=== PATIENT | female | born 1930 | race Caucasian/White ===

== ENCOUNTER 2017-07-14 10:17 | Emergency (ER) | payer OTHER ==
[~2017-07-14] VITALS: Ht 170.2 cm; Wt 54.4 kg
[~2017-07-14 10:17] MED LIST: ACET325 PO; ALPR.25 PO; ASPI325EC; ASPI81CH PO; Augmentin 500-1 EACH PO; BISA5EC PO; CALCIUM + D3 E1 EACH PO; DOCU100 PO; ESCI10 PO; FISH OIL 1,0001 EAC1 PO; IBUP400 PO; LOPE2C PO; Multiple Vitam1 EAC1 PO; NIFE60ER; NIFE90ER PO; Norco 5-325 Ta1 EACH PO; OCUVITE EYE HE1 EACH PO; SIMV10 PO; TRAM50 PO; VALS80; ZESTORETIC 20-121 EA
[2017-07-14 10:45] LABS: BASOPHILS ABSOLUTE AUTO 0.04 K/mm3 (0.00-0.23); BASOPHILS PERCENT AUTO 0 % (0-2); EOSINOPHILS ABSOLUTE AUTO 0.06 K/mm3 (0.00-0.68); EOSINOPHILS PERCENT AUTO 1 % (0-6); Hemoglobin 13.9 g/dL (11.5-16.0); IMMATURE GRAN ABSOLUTE AUTO 0.03 K/mm3 (0.00-0.10); IMMATURE GRAN PERCENT AUTO 0 % (0-1); LYMPHOCYTES ABSOLUTE AUTO 1.37 K/mm3 (0.84-5.20); LYMPHOCYTES PERCENT AUTO 15 % (21-46); MONOCYTES ABSOLUTE AUTO 0.66 K/mm3 (0.16-1.47); MONOCYTES PERCENT AUTO 7 % (4-13); Mean Corpuscular HGB 32.4 pg (26.0-34.0); Mean Corpuscular HGB Conc 33.9 g/dL (31.5-36.5); Mean Corpuscular Volume 96 fL (80-100); NEUTROPHILS ABSOLUTE AUTO 7.11 K/mm3 (1.96-9.15); NEUTROPHILS PERCENT AUTO 77 % (41-73); Platelet Count 232 K/mm3 (150-400); RDW Coefficient Variation 14.1 % (11.7-14.2); RDW Standard Deviation 49.4 fL (35.1-46.3); Red Blood Cell Count 4.29 M/mm3 (3.80-5.20); White Blood Cell Count 9.27 K/mm3 (4.00-11.30)
[2017-07-14 11:09] LABS: Alanine Aminotransfer (ALT/SGP 22 U/L (12-78); Albumin, Blood 3.7 g/dL (3.4-5.0); Albumin/Globulin Ratio 0.8 (0.8-1.8); Alk Phos 102 U/L (50-136); Anion Gap 8 mmol/L (6-16); Aspartate Aminotrans (AST/SGOT 26 U/L (12-37); Bilirubin, Total 0.6 mg/dL (0.1-1.0); Blood Urea Nitrogen 13 mg/dL (8-24); Bun/Creatinine Ratio 19.1 (12.0-20.0); CO2, Blood 26 mmol/L (21-32); Calcium, Blood 9.5 mg/dL (8.5-10.1); Chloride, Blood 100 mmol/L (98-108); Creatinine, Blood 0.68 mg/dL (0.40-1.00); Globulin, Blood 4.4 g/dL (2.2-4.0); Glomerular Filtration Rate >60 (60-); Glucose, Blood 110 mg/dL (70-99); Potassium, Blood 3.5 mmol/L (3.5-5.5); Sodium, Blood 134 mmol/L (136-145); Total Protein, Blood 8.1 g/dL (6.4-8.2); Troponin I <0.015 ng/mL (0.000-0.040)
[2017-07-14 11:40] LABS: Source, Urine Clean Catch
[2017-07-14 11:48] LABS: Bilirubin, Urine Neg (Neg); Blood, Urine Neg (Neg); Glucose Qualitative, Urine Neg (Neg); Ketones, Urine Neg (Neg); Leukocyte Esterase, Urine Neg (Neg); Nitrite, Urine Neg (Neg); Protein, Urine 1+ (Neg); Urobilinogen, Urine NORM (Normal)
[2017-07-14 11:58] LABS: Appearance, Urine Clear (Clear); Color, Urine Yellow (P-Yellow)
[2017-07-14] MEDS ORDERED: ULTRA-LIGHT RO1 EACH XX (14:12)
== END 2017-07-14 14:42 | disposition home or self-care (01) ==
LOC: ER 10:17
PROVIDERS: Emergency Medicine
DX: F03.90 Unspecified dementia, unspecified severity, without behavioral disturbance, psychotic disturbance, mood disturbance, and anxiety (principal); R53.1 Weakness; W19.XXXA Unspecified fall, initial encounter; Z88.5 Allergy status to narcotic agent; Z88.8 Allergy status to other drugs, medicaments and biological substances; Z79.899 Other long term (current) drug therapy; Z79.82 Long term (current) use of aspirin; I10 Essential (primary) hypertension; E78.5 Hyperlipidemia, unspecified; J44.9 Chronic obstructive pulmonary disease, unspecified; F17.210 Nicotine dependence, cigarettes, uncomplicated
CPT/HCPCS: 36415; 70450; 71045; 80053; 84484; 85025; 93005; 93010; 99284

== ENCOUNTER 2018-02-10 09:38 | Emergency (ER) | payer OTHER ==
[~2018-02-10] VITALS: Ht 165.1 cm; Wt 59.0 kg
[~2018-02-10 09:38] MED LIST changes: +ULTRA-LIGHT RO1 EACH XX
[2018-02-10 11:00] LABS: BASOPHILS ABSOLUTE AUTO 0.03 K/mm3 (0.00-0.23); BASOPHILS PERCENT AUTO 0 % (0-2); EOSINOPHILS ABSOLUTE AUTO 0.06 K/mm3 (0.00-0.68); EOSINOPHILS PERCENT AUTO 1 % (0-6); Hematocrit 39.6 % (33.0-51.0); Hemoglobin 13.5 g/dL (11.5-16.0); IMMATURE GRAN ABSOLUTE AUTO 0.03 K/mm3 (0.00-0.10); IMMATURE GRAN PERCENT AUTO 0 % (0-1); LYMPHOCYTES ABSOLUTE AUTO 1.19 K/mm3 (0.84-5.20); LYMPHOCYTES PERCENT AUTO 12 % (21-46); MONOCYTES PERCENT AUTO 8 % (4-13); Mean Corpuscular HGB 33.9 pg (26.0-34.0); Mean Corpuscular HGB Conc 34.1 g/dL (31.5-36.5); Mean Corpuscular Volume 100 fL (80-100); Mean Platelet Volume 11.1 fL (9.1-12.4); NEUTROPHILS ABSOLUTE AUTO 8.18 K/mm3 (1.96-9.15); NEUTROPHILS PERCENT AUTO 79 % (41-73); Platelet Count 241 K/mm3 (150-400); RDW Coefficient Variation 13.2 % (11.7-14.2); RDW Standard Deviation 48.4 fL (35.1-46.3); Red Blood Cell Count 3.98 M/mm3 (3.80-5.20); White Blood Cell Count 10.29 K/mm3 (4.00-11.30)
[2018-02-10 11:13] LABS: Alanine Aminotransfer (ALT/SGP 27 U/L (12-78); Albumin, Blood 3.1 g/dL (3.4-5.0); Albumin/Globulin Ratio 0.8 (0.8-1.8); Alk Phos 116 U/L (50-136); Anion Gap 7 mmol/L (6-16); Aspartate Aminotrans (AST/SGOT 34 U/L (12-37); Bilirubin, Total 0.5 mg/dL (0.1-1.0); Blood Urea Nitrogen 6 mg/dL (8-24); Bun/Creatinine Ratio 7.7 (12.0-20.0); CO2, Blood 28 mmol/L (21-32); Calcium, Blood 8.7 mg/dL (8.5-10.1); Chloride, Blood 103 mmol/L (98-108); Creatinine, Blood 0.78 mg/dL (0.40-1.00); Globulin, Blood 3.7 g/dL (2.2-4.0); Glomerular Filtration Rate >60 (60-); Glucose, Blood 100 mg/dL (70-99); Potassium, Blood 3.3 mmol/L (3.5-5.5); Sodium, Blood 138 mmol/L (136-145); Total Protein, Blood 6.8 g/dL (6.4-8.2)
[2018-02-10 11:37] LABS: Source, Urine Clean Catch
[2018-02-10 11:54] LABS: Appearance, Urine Clear (Clear); Bilirubin, Urine Neg (Neg); Blood, Urine Neg (Neg); Color, Urine Yellow (P-Yellow); Glucose Qualitative, Urine Neg (Neg); Ketones, Urine Neg (Neg); Leukocyte Esterase, Urine Neg (Neg); Nitrite, Urine Neg (Neg); Protein, Urine Neg (Neg); Urobilinogen, Urine NORM (Normal)
== END 2018-02-10 12:52 | disposition home or self-care (01) ==
LOC: ER 09:38
PROVIDERS: Emergency Medicine
DX: E86.0 Dehydration (principal); R53.83 Other fatigue; S42.002D Fracture of unspecified part of left clavicle, subsequent encounter for fracture with routine healing; I10 Essential (primary) hypertension; F03.90 Unspecified dementia, unspecified severity, without behavioral disturbance, psychotic disturbance, mood disturbance, and anxiety; E78.5 Hyperlipidemia, unspecified; J44.9 Chronic obstructive pulmonary disease, unspecified; F17.210 Nicotine dependence, cigarettes, uncomplicated; Z88.5 Allergy status to narcotic agent; Z88.8 Allergy status to other drugs, medicaments and biological substances; Z79.899 Other long term (current) drug therapy; Z79.82 Long term (current) use of aspirin
CPT/HCPCS: 36415; 71046; 80053; 81003; 83690; 85025; 96360; 99283-25; J7030

== ENCOUNTER 2018-11-16 11:06 | Emergency (ER) | payer OTHER ==
[~2018-11-16] VITALS: Ht 170.2 cm; Wt 56.7 kg
[2018-11-16 12:01] LABS: BASOPHILS ABSOLUTE AUTO 0.03 K/mm3 (0.00-0.23); BASOPHILS PERCENT AUTO 0 % (0-2); EOSINOPHILS ABSOLUTE AUTO 0.06 K/mm3 (0.00-0.68); EOSINOPHILS PERCENT AUTO 1 % (0-6); Hematocrit 40.3 % (33.0-51.0); Hemoglobin 13.7 g/dL (11.5-16.0); IMMATURE GRAN ABSOLUTE AUTO 0.03 K/mm3 (0.00-0.10); IMMATURE GRAN PERCENT AUTO 0 % (0-1); LYMPHOCYTES ABSOLUTE AUTO 1.73 K/mm3 (0.84-5.20); LYMPHOCYTES PERCENT AUTO 23 % (21-46); MONOCYTES ABSOLUTE AUTO 0.66 K/mm3 (0.16-1.47); MONOCYTES PERCENT AUTO 9 % (4-13); Mean Corpuscular HGB 31.2 pg (26.0-34.0); Mean Corpuscular Volume 92 fL (80-100); Mean Platelet Volume 11.1 fL (9.1-12.4); NEUTROPHILS ABSOLUTE AUTO 5.15 K/mm3 (1.96-9.15); NEUTROPHILS PERCENT AUTO 67 % (41-73); Platelet Count 260 K/mm3 (150-400); RDW Standard Deviation 47.5 fL (35.1-46.3); Red Blood Cell Count 4.39 M/mm3 (3.80-5.20); White Blood Cell Count 7.66 K/mm3 (4.00-11.30)
[2018-11-16 12:12] LABS: Alanine Aminotransfer (ALT/SGP 21 U/L (12-78); Albumin, Blood 3.5 g/dL (3.4-5.0); Albumin/Globulin Ratio 0.9 (0.8-1.8); Alk Phos 79 U/L (50-136); Anion Gap 9 mmol/L (6-16); Aspartate Aminotrans (AST/SGOT 22 U/L (12-37); Bilirubin, Total 0.3 mg/dL (0.1-1.0); Blood Urea Nitrogen 14 mg/dL (8-24); Bun/Creatinine Ratio 15.9 (12.0-20.0); CO2, Blood 25 mmol/L (21-32); Calcium, Blood 9.5 mg/dL (8.5-10.1); Chloride, Blood 101 mmol/L (98-108); Creatinine, Blood 0.88 mg/dL (0.40-1.00); Globulin, Blood 3.7 g/dL (2.2-4.0); Glomerular Filtration Rate >60 (60-); Glucose, Blood 91 mg/dL (70-99); Potassium, Blood 3.7 mmol/L (3.5-5.5); Sodium, Blood 135 mmol/L (136-145); Total Protein, Blood 7.2 g/dL (6.4-8.2); Troponin I <0.015 ng/mL (0.000-0.040)
== END 2018-11-16 15:50 | disposition home or self-care (01) ==
LOC: ER 11:06
PROVIDERS: Emergency Medicine
DX: J44.1 Chronic obstructive pulmonary disease with (acute) exacerbation (principal); R09.02 Hypoxemia; Z88.5 Allergy status to narcotic agent; Z88.8 Allergy status to other drugs, medicaments and biological substances; Z79.899 Other long term (current) drug therapy; Z79.82 Long term (current) use of aspirin; I10 Essential (primary) hypertension; Z85.3 Personal history of malignant neoplasm of breast; F03.90 Unspecified dementia, unspecified severity, without behavioral disturbance, psychotic disturbance, mood disturbance, and anxiety; E78.5 Hyperlipidemia, unspecified; J44.9 Chronic obstructive pulmonary disease, unspecified; F17.210 Nicotine dependence, cigarettes, uncomplicated
CPT/HCPCS: 71046; 80053; 84484; 85025; 93005; 93010; 94640; 94664; 94760; 96374; 98960; 99285-25; J2930

== ENCOUNTER 2019-04-10 18:46 | Emergency (ER) | payer OTHER ==
[~2019-04-10] VITALS: Ht 157.5 cm; Wt 45.4 kg
[2019-04-10 20:41] LABS: Source, Urine Clean Catch
[2019-04-10 20:44] LABS: BASOPHILS ABSOLUTE AUTO 0.07 K/mm3 (0.00-0.23); BASOPHILS PERCENT AUTO 1 % (0-2); EOSINOPHILS ABSOLUTE AUTO 0.06 K/mm3 (0.00-0.68); EOSINOPHILS PERCENT AUTO 0 % (0-6); Hematocrit 37.6 % (33.0-51.0); Hemoglobin 12.4 g/dL (11.5-16.0); IMMATURE GRAN ABSOLUTE AUTO 0.06 K/mm3 (0.00-0.10); IMMATURE GRAN PERCENT AUTO 0 % (0-1); LYMPHOCYTES ABSOLUTE AUTO 1.13 K/mm3 (0.84-5.20); LYMPHOCYTES PERCENT AUTO 7 % (21-46); MONOCYTES PERCENT AUTO 8 % (4-13); Mean Corpuscular HGB 31.5 pg (26.0-34.0); Mean Corpuscular Volume 95 fL (80-100); NEUTROPHILS ABSOLUTE AUTO 12.99 K/mm3 (1.96-9.15); NEUTROPHILS PERCENT AUTO 84 % (41-73); Platelet Count 223 K/mm3 (150-400); RDW Coefficient Variation 13.4 % (11.7-14.2); RDW Standard Deviation 47.8 fL (35.1-46.3); Red Blood Cell Count 3.94 M/mm3 (3.80-5.20); White Blood Cell Count 15.51 K/mm3 (4.00-11.30)
[2019-04-10 20:44] LABS: Bilirubin, Urine Neg (Neg); Blood, Urine 1+ (Neg); Glucose Qualitative, Urine Neg (Neg); Ketones, Urine Neg (Neg); Leukocyte Esterase, Urine Neg (Neg); Nitrite, Urine Neg (Neg); Protein, Urine 3+ (Neg); Urobilinogen, Urine NORM (Normal)
[2019-04-10 20:46] LABS: Appearance, Urine Clear (Clear); Color, Urine Yellow (P-Yellow)
[2019-04-10 20:51] LABS: Amorphous Light (0-Heavy); Bacteria Mod /hpf; Hyaline Casts 0-2 /lpf (0-2); Red Blood Cells, Urine 0-2 /hpf (0-2); Squamous Epithelial Cells Not Seen /hpf (Few)
[2019-04-10 21:07] LABS: Alanine Aminotransfer (ALT/SGP 16 U/L (12-78); Albumin, Blood 3.3 g/dL (3.4-5.0); Albumin/Globulin Ratio 0.9 (0.8-1.8); Alk Phos 85 U/L (50-136); Anion Gap 9 mmol/L (6-16); Aspartate Aminotrans (AST/SGOT 22 U/L (12-37); Bilirubin, Total 0.2 mg/dL (0.1-1.0); Blood Urea Nitrogen 22 mg/dL (8-24); CO2, Blood 25 mmol/L (21-32); Calcium, Blood 9.2 mg/dL (8.5-10.1); Chloride, Blood 106 mmol/L (98-108); Creatinine, Blood 0.92 mg/dL (0.40-1.00); Globulin, Blood 3.5 g/dL (2.2-4.0); Glomerular Filtration Rate >60 (60-); Glucose, Blood 102 mg/dL (70-99); Potassium, Blood 3.7 mmol/L (3.5-5.5); Sodium, Blood 140 mmol/L (136-145); Total Protein, Blood 6.8 g/dL (6.4-8.2); Troponin I <0.015 ng/mL (0.000-0.040)
== END 2019-04-10 21:52 | disposition home or self-care (01) ==
LOC: ER 18:46
PROVIDERS: Emergency Medicine
DX: F03.90 Unspecified dementia, unspecified severity, without behavioral disturbance, psychotic disturbance, mood disturbance, and anxiety (principal); R11.2 Nausea with vomiting, unspecified; I10 Essential (primary) hypertension; E78.5 Hyperlipidemia, unspecified; J44.9 Chronic obstructive pulmonary disease, unspecified; Z79.899 Other long term (current) drug therapy; Z79.82 Long term (current) use of aspirin
CPT/HCPCS: 36415; 70450; 71045; 80053; 81001; 84484; 85025; 87086; 93005; 93010; 96374; 99285-25; J2405; P9612

== ENCOUNTER 2020-03-15 11:00 | Observation (INO) | payer OTHER ==
[~2020-03-15] VITALS: Ht 170.2 cm; Wt 46.7 kg
[~2020-03-15 11:00] MED LIST changes: -ASPI81CH PO; +Aspirin EC81 MG PO; +NIFE30ER PO; -NIFE90ER PO
[2020-03-15] MEDS ORDERED: BISA10S PR ×2 (11:29→15:10)
[2020-03-15] MEDS ORDERED: DOCU100 PO (11:29)
[2020-03-15] MEDS ORDERED: Ativan1 MG PO (11:30)
[2020-03-15 13:54] LABS: Alanine Aminotransfer (ALT/SGP 22 U/L (12-78); Albumin, Blood 3.8 g/dL (3.4-5.0); Albumin/Globulin Ratio 1.1 (0.8-1.8); Alk Phos 84 U/L (50-136); Anion Gap 7 mmol/L (6-16); Aspartate Aminotrans (AST/SGOT 32 U/L (12-37); Bilirubin, Total 0.7 mg/dL (0.1-1.0); Blood Urea Nitrogen 17 mg/dL (8-24); Bun/Creatinine Ratio 19.5 (12.0-20.0); CO2, Blood 30 mmol/L (21-32); Calcium, Blood 9.7 mg/dL (8.5-10.1); Chloride, Blood 99 mmol/L (98-108); Creatinine, Blood 0.87 mg/dL (0.40-1.00); Globulin, Blood 3.6 g/dL (2.2-4.0); Glomerular Filtration Rate >60 (60-); Glucose, Blood 99 mg/dL (70-99); Sodium, Blood 136 mmol/L (136-145); Total Protein, Blood 7.4 g/dL (6.4-8.2)
[2020-03-15 14:12] LABS: BASOPHILS ABSOLUTE AUTO 0.05 K/mm3 (0.00-0.23); BASOPHILS PERCENT AUTO 0 % (0-2); EOSINOPHILS ABSOLUTE AUTO 0.06 K/mm3 (0.00-0.68); EOSINOPHILS PERCENT AUTO 0 % (0-6); Hemoglobin 12.5 g/dL (11.5-16.0); IMMATURE GRAN ABSOLUTE AUTO 0.07 K/mm3 (0.00-0.10); IMMATURE GRAN PERCENT AUTO 1 % (0-1); LYMPHOCYTES ABSOLUTE AUTO 1.04 K/mm3 (0.84-5.20); LYMPHOCYTES PERCENT AUTO 8 % (21-46); MONOCYTES ABSOLUTE AUTO 0.72 K/mm3 (0.16-1.47); MONOCYTES PERCENT AUTO 5 % (4-13); Mean Corpuscular HGB 30.3 pg (26.0-34.0); Mean Corpuscular HGB Conc 33.8 g/dL (31.5-36.5); Mean Corpuscular Volume 90 fL (80-100); NEUTROPHILS ABSOLUTE AUTO 11.74 K/mm3 (1.96-9.15); NEUTROPHILS PERCENT AUTO 86 % (41-73); NRBC ABSOLUTE 0.02 K/mm3 (0.00-0.02); NRBC Auto 0.1 /100 WBC (0.0-0.2); RDW Coefficient Variation 13.5 % (11.7-14.2); RDW Standard Deviation 44.6 fL (35.1-46.3); Red Blood Cell Count 4.13 M/mm3 (3.80-5.20); White Blood Cell Count 13.68 K/mm3 (4.00-11.30)
[2020-03-15 14:42] LABS: Mean Platelet Volume 11.9 fL (9.1-12.4); Platelet Count 124 K/mm3 (150-400)
[2020-03-15] MEDS ORDERED: DOCUZEN 8.6-501 EACH PO (15:09)
[2020-03-15] MEDS ORDERED: MELA3 PO (15:11)
--- NOTE | 2020-03-15 16:50 | NUR ---
1515 TO ROOM FROM ER PT RESTLESS, CONFUSED, CONTINUOUS ATTEMPTS TO CLIMB OUT OF BED. PT NOT ORIENTED TO PERSON, PLACE TIME OR SURROUNDINGS. PT IS NOT GRIMACING OR LIMITING MOVEMENT OF LIMBS.
--- NOTE | 2020-03-15 16:52 | NUR ---
1610 PT CONTINUES ATTEMPTS TO CLIMB OUT OF BED, UNABLE TO REDIRECT. PLAN TO TRANSFER PT TO SCU WHEN ROOM CLEANED TO ALLOW CLOSER OBSERVATION. RN SITTING AT BEDSIDE WITH PATIENT
--- NOTE | 2020-03-15 17:44 | NUR ---
SHIFT SUMMARY PT TRANSFERRED FROM SURGICAL TO [place] [id number]. RECEIVED REPORT FROM GASPER PATINO. PT IS BEDREST AT THE MOMENT; USES BEDPAN; ON REGULAR DIET. PT ON COMFORT CARE- HOSPICE AT HOME AND CAME HERE FOR R HIP FX. PT HAS DEMENTIA AND NOT ALERT AND ORIENTED AT BASELINE. PT SON IS THE POA. BED ALARM IS ON; BED IS IN THE LOWEST POSITION AND CALL LIGHTS WITHIN REACH
--- NOTE | 2020-03-15 18:08 | NUR ---
1748 transfer to room 349 via bed
--- NOTE | 2020-03-16 05:50 | NUR ---
SHIFT SUMMARY PT IS AN 89 Y/O FEMALE, ADMITTED FOR R HIP FX. SHE IS A&O X SELF, ON BEDREST. PT WAS VERY AGITATED AT THE START OF SHIFT, AND WAS MEDICATED WITH PRN IV DILAUDID. PT SLEPT WELL AFTER SHE WAS MEDICATED. NO C/O NAUSEA OR SOB, NO S/S OF DISTRESS. VITAL SIGNS STABLE. NO ACUTE CHANGES IN PT CONDITION NOTED. WILL CONTINUE TO MONITOR AND TREAT PER EMAR UNTIL HAND OFF TO DAY SHIFT RN.
[2020-03-16 10:09] LABS: Source, Urine Catheter
[2020-03-16 10:12] LABS: Appearance, Urine Turbid (Clear); Bilirubin, Urine Neg (Neg); Blood, Urine 2+ (Neg); Color, Urine Yellow (P-Yellow); Glucose Qualitative, Urine Neg (Neg); Ketones, Urine 2+ (Neg); Leukocyte Esterase, Urine Neg (Neg); Nitrite, Urine Neg (Neg); Protein, Urine 3+ (Neg); Urobilinogen, Urine NORM (Normal)
[2020-03-16] MEDS ORDERED: DOCU100 PO (10:12)
[2020-03-16] MEDS ORDERED: Ativan1 MG SL (10:16)
[2020-03-16] MEDS ORDERED: Milk Of Ma400 MG/5 M PO (10:19)
[2020-03-16 10:21] LABS: Bacteria Many /hpf; Squamous Epithelial Cells Many /hpf (Few)
[2020-03-16] MEDS ORDERED: Oxycodone HCl20 M1 SL (10:21)
[2020-03-16] MEDS ORDERED: MINERAL OIL135 ML PR (10:22)
[2020-03-16] MEDS ORDERED: HYOS.125 PO (10:23)
--- NOTE | 2020-03-16 10:35 | NUR ---
TRYING TO REDIRECT PT TO STAY IN BED, CALL LIGHT IN REACH.
--- NOTE | 2020-03-16 17:29 | NUR ---
SHIFT SUMMARY PT AOX1. PT VERY PAINFUL WHEN REPOSITION. PT MEDICATER PER EMAR; PT IS MORE AWAKE TODAY THAN YESTERDAY. PT HAS FENTANYL PATCH ON RIGHT UPPER ARM FOR PAIN. DUPONT INSERTED TODAY 03/16; AND SENT THE [facility]. PT PRESCRIBED ROCEPHIN. NO OTHER ACUTE CHANGES AT THIS SHIFT. BED IS IN THE LOWEST POSITION AND CALL LIGHTS WITHIN REACH.
--- NOTE | 2020-03-17 06:15 | NUR ---
SHIFT SUMMARY PT IS AN 89 Y/O FEMALE, ADMITTED WITH A R HIP FX. SHE IS A&O X SELF ONLY, ON BEDREST, THOUGH SHE MOVES ALL FOUR EXTREMITIES. DUPONT IN PLACE, PATENT AND DRAINING. PT SLEPT WELL THROUGH THE NIGHT, WITH NO S/S OF PAIN (EXCEPT WITH TURNING), NAUSEA OR SOB. VITAL SIGNS STABLE. NO OTHER ACUTE CHANGES IN PT CONDITION NOTED DURING THE NIGHT. WILL CONTINUE TO MONITOR AND TREAT PER EMAR UNTIL HAND OFF TO DAY SHIFT RN.
--- NOTE | 2020-03-17 17:28 | NUR ---
SHIFT SUMMARY PT ALERT TO SELF ONLY; PLEASANTLY CONFUSED. PT CALM AND COOPERATIVE. PT ABLE TO TAKE MEDICATIONS CRUSHED WITH PUDDING. PT VERY PAINFUL WITH POSITION CHANGING; MEDICATED PER EMAR USING FACE SCALE. PT HAS DUPONT IN DRAINING AND PATENT. PT SON CAME BY AND VISITED THE PT. BED ALARM IS ON; CALL LIGHTS WITHIN REACH AND BED IS IN THE LOWEST POSITION.
--- NOTE | 2020-03-18 06:00 | NUR ---
SHIFT SUMMARY PT IS A 89 Y/O FEMALE, ADMITTED FOR R HIP FX AND IMPAIRED MOBILITY. PT IS A&O X SELF ONLY, MOVES ALL FOUR EXTREMITIES IN BED. PT SLEPT OFF AND ON DURING THE NIGHT, NO S/S OF ACUTE PAIN AT REST, SOB OR NAUSEA. AM BP WAS ELEVATED AT 169/79. ALL OTHER VITALS STABLE. NO OTHER ACUTE CHANGES IN PT CONDITION NOTED. WILL CONTINUE TO MONITOR AND TREAT PER EMAR UNTIL HAND OFF TO DAY SHIFT RN.
--- NOTE | 2020-03-18 18:18 | NUR ---
PATIENT IS ALERT TO SELF, FAMILY AND FOLLOWING DIRECTIONS. SHE HAS A POOR APPETITE. DUPONT IS IN PLACE. MEDICATED FOR PAIN ONCE TODAY. PATIENT PULLED IV THIS AFTERNOON. NON-WEIGHT BEARING, BEDREST. THE PATIENT'S SON WAS AT THE BEDSIDE FOR A COUPLE HOURS TODAY. WILL CONTINUE TO MONITOR.
--- NOTE | 2020-03-19 04:40 | NUR ---
NURSE EXAMINER SUMMARY PT A&O SELF, ABLE TO MAKE NEEDS KNOWN. PLEASANT AND COOPERATIVE TO CARE. MEDICATED FOR PAIN PER EMAR. PT ON RA, DENIES SOB, CP, N&V. CALM AND RESTED IN BED T/O SHIFT. BED AT LOWEST POSITION. CALL LIGHT WITHIN REACH.
--- NOTE | 2020-03-19 17:43 | NUR ---
PATIENT IS ALERT AND ORIENTED TO SELF AND FAMILY. DUPONT IS IN PLACE AND PATENT. THE PLAN IS TO DISCHARGE TO A ADULT [facility] HOME TOMORROW. NO NEW CONCERNS TODAY. NO COMPLAINTS OF PAIN. PATIENT IS EASILY REDIRECTABLE. FENTANYL PATCH PLACE ON THE PATIENT'S GOVIND. WILL CONTINUE TO MONITOR
--- NOTE | 2020-03-20 04:47 | NUR ---
TIMBER SELECTOR SUMMARY PT A&O TO SELF. CONFUSED, EASILY REDIRECTABLE AND ABLE TO FOLLOW SIMPLE INSTRUCTIONS FROM STAFF. MEDICATED FOR PAIN X2, PER EMAR. PT WAS OBSERVED TO BE ANXIOUS AND TENSE, MEDICATED FOR ANXIETY X1 PER EMAR. CALM AND RESTED IN BED REMAINING OF THE SHIFT. BEDREST, INCONTINENT OF B&B. NO C/O CP, SOB, OR N&V. BED AT LOWEST POSITION. CALL LIGHT WITHIN REACH.
--- NOTE | 2020-03-20 06:44 | NUR ---
PT WAS REPORTED BY COMMUNICATIONS SCIENTIST TO HAVE ELEVATED BP OF 219/101 AND WAS RECHECKED RIGHT AFTER REPOSITIONING PT BP: 175/95. NO C/O CP OR ANY DISCOMFORT. PT ALSO HAD ELEVATED BP'S DURING THE SHIFT, DURING THAT TIME OF ASSESSMENT PT WAS ANXIOUS AND TENSE, C/O PAIN ON ABD RUQ. PT WAS MEDICATED FOR PAIN X2, AND FOR ANXIETY X1. NOTIFIED HOSPITALIST . T.O NOTED. NEW 22G IV PLACED ON L AC BY CAREY SOTO. AWAITING TELE MONITOR. WILL CONT TO MONITOR PT. PT SLEEPING IN BED AT THIS TIME. PRN LABETALOL TO BE ADMINISTERED AFTER TELE MONITORING ESTABLISHED.
[2020-03-20] MEDS ORDERED: NIFE30ER PO (11:27)
[2020-03-20] MEDS ORDERED: ROXICODONE5 MG PO (11:29)
[2020-03-20] MEDS ORDERED: FENTANYL1 EA12 TOP (11:30)
--- NOTE | 2020-03-20 14:34 | NUR ---
DISCHARGE SUMMARY PT A/O X1 AND VERY FATIGUED. HAD HIGH BP THIS AM AND WAS GIVEN IV LABETOLOL W/GOOD EFFECT. PT REFUSED PILLS THIS AM WELL MOST ORAL INTAKE. [facility]. HARD COPIES OF PRESCRIPIONS W/PATIENT AND ALSO FAXED TO [facility].
== END 2020-03-20 13:31 | disposition home or self-care (01) ==
LOC: ER 11:00 → SURS 11:01 → MEDS 17:29
PROVIDERS: Emergency Medicine; Internal Medicine; ADMIT Internal Medicine
DX: M25.551 Pain in right hip (principal); R10.2 Pelvic and perineal pain; R29.6 Repeated falls; R62.7 Adult failure to thrive; E87.6 Hypokalemia; I10 Essential (primary) hypertension; F03.90 Unspecified dementia, unspecified severity, without behavioral disturbance, psychotic disturbance, mood disturbance, and anxiety; E78.5 Hyperlipidemia, unspecified; J44.9 Chronic obstructive pulmonary disease, unspecified; M85.80 Other specified disorders of bone density and structure, unspecified site; K58.9 Irritable bowel syndrome, unspecified; D69.6 Thrombocytopenia, unspecified; I73.9 Peripheral vascular disease, unspecified; M89.49 Other hypertrophic osteoarthropathy, multiple sites; D72.829 Elevated white blood cell count, unspecified; Z51.5 Encounter for palliative care; Z66 Do not resuscitate; Z85.3 Personal history of malignant neoplasm of breast; Z90.10 Acquired absence of unspecified breast and nipple; Z88.8 Allergy status to other drugs, medicaments and biological substances; Z68.1 Body mass index [BMI] 19.9 or less, adult; Z79.82 Long term (current) use of aspirin; Z79.899 Other long term (current) drug therapy; Z23 Encounter for immunization; W19.XXXA Unspecified fall, initial encounter
CPT/HCPCS: 73502; 80053; 81001; 85025; 87086; 96365; 96366; 96372; 96374; 96375; 99285-25; A9270; G0378; J0696; J1170; J1650; J2405; J3010; J7050